=== PATIENT | female | born 1985 | race American Indian/Alaskan Native ===

== ENCOUNTER 2021-09-29 08:45 | Day surgery (SDC) | payer OTHER ==
[2021-09-29] MEDS ORDERED: LACTATED RINGERS 1,000 ML ONE (09:52)
[2021-09-29] MEDS ORDERED: ceFAZolin/STERILE WATER 2 GM/20 ML SYRINGE IV NR (10:00)
--- NOTE | 2021-09-29 10:13 | Anesthesia Day of Surgery ---
Anesthesia Day of Surgery - Day of Surgery Patient Examined: Yes Patient H&P Reviewed: Yes Patient is NPO: Yes
--- NOTE | 2021-09-29 10:14 | Anesthesia Consultation ---
Anesthesia Consult and Med Hx Date of service: 09/29/21 - Airway Anesthetic Teeth Evaluation: Good ROM Head & Neck: Adequate Mental/Hyoid Distance: Adequate Mallampati Class: Class I Intubation Access Assessment: Good - Pulmonary Exam CTA: Yes - Cardiac Exam Cardiac Exam: RRR - Pre-Operative Health Status ASA Pre-Surgery Classification: ASA2 Proposed Anesthetic Plan: General - Central Nervous System Hx Psychiatric Problems: No - Hematic Hx Anemia: Yes Hx Sickle Cell Disease: No - Other Systems Hx Alcohol Use: No Hx Substance Use: No Hx Cancer: No
[2021-09-29] MEDS ORDERED: dexAMETHasone 4 MG/ML VIAL IV SCH (11:00)
[2021-09-29] MEDS ORDERED: LACTATED RINGERS 1,000 ML IV SCH (11:00)
[2021-09-29] MEDS ORDERED: GABAPENTIN 300 MG CAP PO NR (11:00)
[2021-09-29] MEDS ORDERED: ACETAMINOPHEN 325 MG TAB PO SCH ×2 (11:00)
[2021-09-29] MEDS ORDERED: CELECOXIB 200 MG CAP PO NR (11:00)
[2021-09-29] MEDS ORDERED: ACETAMINOPHEN 325 MG/10.15 ML ORAL LIQD UNIT DOSE PO NR (11:00)
[2021-09-29] MEDS ORDERED: MIDAZOLAM 2 MG/2 ML INJ IV NR (11:00)
[2021-09-29] MEDS ORDERED: ACETAMINOPHEN 325 MG TAB ONE (11:03)
[2021-09-29] MEDS ORDERED: HYDROmorphone 1 MG/1 ML INJ ONE (11:53)
[2021-09-29] MEDS ORDERED: propofoL 200 MG/20 ML VIAL IV ONE (11:53)
[2021-09-29] MEDS ORDERED: LIDOCAINE MPF (2%) 20 MG/1 ML VIAL 5 ML ONE (11:55)
[2021-09-29] MEDS ORDERED: ROCURONIUM 50 MG/5 ML INJ IV ONE (11:55)
[2021-09-29] MEDS ORDERED: LIDOCAINE (1%) 10 MG/1 ML VIAL 20 ML MDV ONE (13:26)
[2021-09-29] MEDS ORDERED: BUPIVACAINE/PF (0.25%) 2.5 MG/ML 30 ML VIAL INFILTRATI ONE ×2 (13:27→14:11)
[2021-09-29] MEDS ORDERED: ONDANSETRON 4 MG/2 ML INJ ONE (13:31)
[2021-09-29] MEDS ORDERED: KETOROLAC 30 MG/1 ML INJ ONE (13:31)
[2021-09-29] MEDS ORDERED: SUGAMMADEX SODIUM 200 MG/2 ML VIAL IV ONE (13:35)
--- NOTE | 2021-09-29 13:54 | Short Stay Summary ---
Short Stay Documentation Date of service: 09/29/21 - History Principal diagnosis: ventral hernia H&P: obtained from office - Allergies and Medications Current Medications: Allergies No Known Allergies Allergy (Unverified 09/20/21 16:24) Home Medications Medication Instructions Recorded Confirmed Last Taken Type No Known Home Medications [No 09/20/21 09/20/21 Unknown History Reported Home Medications] Active Medications Acetaminophen (Acetaminophen 325 Mg/10.15 Ml Oral Liqd Unit Dose) 650 mg PO PREOP NR Stop: 09/29/21 23:59 Cefazolin Sodium (Cefazolin/Sterile Water 2 Gm/20 Ml Syringe) 2 gm IV PREOP NR Stop: 09/29/21 15:00 Celecoxib (Celecoxib 200 Mg Cap) 200 mg PO PREOP NR Stop: 09/29/21 23:59 Last Admin: 09/29/21 11:10 Dose: 200 mg Dexamethasone (Dexamethasone 4 Mg/Ml Vial) 8 mg IV PREOP ELIAN Stop: 09/29/21 23:59 Last Admin: 09/29/21 11:15 Dose: 8 mg Gabapentin (Gabapentin 300 Mg Cap) 300 mg PO PREOP NR Stop: 09/29/21 23:59 Last Admin: 09/29/21 11:10 Dose: 300 mg Lactated Ringer's (Lactated Ringers) 1,000 mls @ 100 mls/hr IV DIRECT ELIAN Last Admin: 09/29/21 10:30 Dose: 100 mls/hr Midazolam HCl (Midazolam 2 Mg/2 Ml Inj) 2 mg IV PREOP NR Stop: 09/29/21 23:59 Last Admin: 09/29/21 12:50 Dose: 2 mg - Brief post op/procedure progress note Date of procedure: 09/29/21 Pre-op diagnosis: ventral hernia Post-op diagnosis: same Procedure: open primary repair of ventral hernia Anesthesia: GETA, local Findings: 1 cm supraumbilical ventral hernia and tiny <0.5 cm umbilical hernia Surgeon: ANTONI DEVI Estimated blood loss: minimal Pathology: none Condition: stable - Hospital course Hospital course: Pt observed in PACU and discharged to home in stable condition - Disposition Condition at discharge: Good Disposition: 01 HOME / SELF CARE / HOMELESS Short Stay Discharge Plan Activity: other (No heavy lifting) Diet: regular Wound: per your surgeon's advice Additional Instructions: SEE PRINTED INSTRUCTIONS Follow up with: PRIMARY CAREMD [Primary Care Provider] - 7 Days ANTONI DEVI DO [Staff Physician] - 14 Days Prescriptions: Gabapentin 300 mg PO BID #6 capsule Ibuprofen [Motrin 800 MG tab] 800 mg PO Q8HR PRN #30 tablet PRN Reason: Pain, Moderate (4-6) HYDROcodone/APAP 5-325 [[place] 5/325] 1 each PO Q6HR PRN #15 tablet PRN Reason: Pain , Severe (7-10)
[2021-09-29] MEDS ORDERED: LIDOCAINE (1%) 10 MG/1 ML VIAL 20 ML MDV INFILTRATI ONE (14:12)
[2021-09-29] MEDS ORDERED: SODIUM CHLORIDE 0.9% IRR 1,500 ML BOTTLE IR ONE (14:12)
--- NOTE | 2021-09-29 14:31 | Post Anesthesia Evaluation ---
- Post Anesthesia Evaluation Patient Participated: Yes Airway Patent: Yes Stable Respiratory Function: Yes Nausea/Vomiting: No Temp > 96.8F: Yes Pain Manageable: Yes Adequeate Hydration: Yes Anesthesia Complications: No
[2021-09-29 17:39] VITALS: BP 136/92
--- NOTE | 2021-10-05 09:22 | Operative Report ---
Operative Report Operative Report: Date of procedure: 09/29/21 Pre-op diagnosis: ventral hernia Post-op diagnosis: same Procedure: open primary repair of ventral hernia Anesthesia: GETA, local Findings: 1 cm supraumbilical ventral hernia and tiny <0.5 cm umbilical hernia Surgeon: ANTONI DEVI Estimated blood loss: minimal Pathology: none Condition: stable Hospital course: Pt observed in PACU and discharged to home in stable condition Condition at discharge: Good Disposition: 01 HOME / SELF CARE / HOMELESS HPI indication: Patient is a 35-year-old female who presented to the surgery clinic with a small but symptomatic umbilical hernia. The patient was having more discomfort in the area and elected to have this fixed. She is also currently in the process of infertility work-up and was planning to have children soon in the future. It was recommended that she undergo an open primary umbilical hernia repair. All risk, benefits, alternatives to surgery discussed with patient questions answered. Consent was obtained. Procedure in detail: Patient was identified in the preoperative area, taken back to the operating room and placed on the operating room table in supine position. After anesthesia was induced the abdomen was prepped and draped in usual sterile fashion timeout performed. Local anesthetic was infiltrated into the skin at the intended incision site. An inverted semilunar incision was made at the superior aspect of the umbilicus using a 15 blade. Dissection was carried down through skin and subcutaneous tissue using Bovie electrocautery until the hernia was encountered. There was a 0.5 cm supra umbilical ventral hernia along with a tiny fascial defect at the umbilicus. The umbilicus was dissected free from the hernia sac. The hernia sac and its contents were circumferentially dissected free from the surrounding tissue using a hemostat and electrocautery. The fascia was identified and freed of overlying tissue circumferentially. Both defects were connected and measured approximately 1 cm. The fascia was closed using interrupted 2-0 Prolene stitches. The subcutaneous tissue was irrigated and hemostasis ensured. The umbilicus was tacked down to the fascia using a 3-0 Vicryl interrupted stitch. The deep dermal layer was closed using 3-0 Vicryl interrupted sutures. The skin was approximated using 4-0 Monocryl subcuticular running stitch and skin glue. After the glue was dry a 4 x 4 fluff gauze was placed in the umbilicus and secured with a Tegaderm. At the end of the case, all sponge, instrument, sharp counts were correct x2. The patient was awoken from anesthesia extubated and taken to PACU in stable condition.
== END 2021-09-29 15:15 | disposition home or self-care (01) ==
LOC: OR 08:45
PROVIDERS: ATTEND Surgery
DX: K43.9 Ventral hernia without obstruction or gangrene (principal); K21.9 Gastro-esophageal reflux disease without esophagitis; D64.9 Anemia, unspecified; Z79.899 Other long term (current) drug therapy; Z98.890 Other specified postprocedural states
CPT/HCPCS: 49560; 81025; J0690; J1100; J1170; J1885; J2250; J2405; J2704; J3490; J7120